=== PATIENT | female | born 1955 | race Caucasian/White ===

== ENCOUNTER → 2018-11-14 07:42 | Outpatient (CLI) | payer OTHER, SELFPAY ==
--- NOTE | 2018-11-14 07:50 | CT_ITS ---
STUDY: CT ABDOMEN AND PELVIS WITH AND WITHOUT CONTRAST REASON FOR EXAM: Female, 63 years old. Microhematuria. RADIATION DOSAGE (If Supplied By Facility): CTDIvol = ( 11.89 ) mGy, DLP = ( 1106.05 ) mGycm TECHNIQUE: Transaxial images were obtained from the dome of the diaphragm to the symphysis pubis without oral contrast. Isovue 300 100CC IV was administered. Sagittal and coronal images were reconstructed. Individualized dose optimization techniques were used for this CT. COMPARISON: None. FINDINGS: The visualized lung bases are unremarkable. The visualized portions of the heart are within normal limits. There is a 1 x 0.7 x 1.1 cm cyst in segment 3 of the liver. There is a 5 cm cyst in segment 6 and a 3 mm cyst in segment 5.. There is also a 8 mm cyst adjacent to the IVC segment 4A. No enhancing liver masses noted. Normal gallbladder and extrahepatic biliary system. Normal spleen. Normal pancreas. Normal bilateral adrenal glands. Both kidneys appear grossly normal. Both demonstrate extrarenal pelvis sees without hydronephrosis. Normal visualized stomach. Normal small intestine. Feces is seen throughout the redundant colon. There is no mass or obstruction. There is non-visualization of the appendix. Normal abdominal aorta. There is prominence of the IVC and iliac veins. Normal retroperitoneum. There is an air-fluid level within an otherwise normal urinary bladder. The uterus is anteverted midline. There is a 9 mm enhancing focus in the left anterior wall suggesting fibroid. Normal ovaries and adnexa. There is no pelvic lymphadenopathy. No mass or free fluid is seen within the abdominal cavity. There are multiple varices extending between the common femoral veins. Normal osseous structures. CT/CT Abd/Pelvis W/WO Contrast IMPRESSION: 1. Air-fluid level in the urinary bladder. This is most likely secondary to recent catheterization. 2. No evidence of renal or ureteral abnormality. 3. Multiple hepatic cysts. 4. Prominent venous structures and IVC without obstruction. There are multiple varices in the soft tissues of the lower abdomen between the common femoral veins. Electronically Signed: Bryson Luu DO at 21:11 EST Tel [phone], Service support ,
[2018-11-14 08:11] LABS: CREATININE FINGERSTICK 0.7 mg/dL (0.55-1.02); EGFR FINGERSTICK > 60.0000 mL/min (>60)
== END ==
PROVIDERS: Family Provider Family Medicine; PCP Family Medicine; Referring Provider Urology; Visit Provider Urology
DX: R31.29 Other microscopic hematuria (principal)
CPT/HCPCS: 74178; Q9967

== ENCOUNTER → 2018-12-04 09:40 | Outpatient (CLI) | payer OTHER, SELFPAY | PROVIDERS: Family Provider Family Medicine; PCP Family Medicine; Referring Provider Urology; Visit Provider Urology | DX: R30.0 Dysuria (principal) | CPT/HCPCS: 87086; 87088 ==

== ENCOUNTER 2018-12-19 11:08 | Observation (INO) | payer SELFPAY ==
--- NOTE | 2018-12-13 10:04 | EKG12_ITS ---
Test Reason : PREOP Blood Pressure : / mmHG Vent. Rate : 074 BPM Atrial Rate : 074 BPM P-R Int : 142 ms QRS Dur : 082 ms QT Int : 374 ms P-R-T Axes : 058 068 052 degrees QTc Int : 415 ms Normal sinus rhythm Possible Left atrial enlargement Borderline ECG Confirmed by JENNY FRANCIS, ROBERT ([id number]), editorial cartoonist ENRIQUE RIVERA ([id number]) on 12/14/2018 1:06:58 PM Referred By: Neela Ayala Confirmed By:ROBERT ALVARADO MD
[2018-12-13 11:03] LABS: Hematocrit 45.8 % (37-47); Hemoglobin 16.1 g/dl (12.0-15.0); Mean Corp Hgb Conc 35.2 g/gl (32-36); Mean Corpuscular Hgb 31.3 pg (27.0-32.0); Mean Corpuscular Volume 89.1 fL (81-99); Mean Platelet Vol. 10.1 fl (6.2-12.0); Platelet Count 364 K/mm3 (150-450); RBC Distribution Width CV 13.4 % (11.6-14.6); RBC Distribution Width SD 43.6 fl (35.1-43.9); Red Blood Count 5.14 M/mm3 (4.2-5.4); Scan Indicated on CBC? Y/N NO; White Blood Count 8.2 K/mm3 (4.4-11.0)
[2018-12-13 11:12] LABS: Prothrombin Time (Protime)PT. 13.3 SECONDS (11.7-14.9)
[2018-12-13 11:13] LABS: Partial Thromboplast Time 32.2 Seconds (24.1-36.2)
[2018-12-15 07:49] VITALS: BMI 20.6
--- NOTE | 2018-12-18 17:04 | PCM.HP.STD ---
Problem List (1) Complete uterine prolapse with prolapse of anterior vaginal wall Status: Acute History of Present Illness Date of Admission: 12/19/18 Chief Complaint: Uterine prolapse The patient is a 63 year old F, . She has had one . Patient is postmenopausal. Patient with increased severity of uterine prolapse. She had attempted pessary. Unable to continue pessary due to lack of comfort. The uterine prolapse has interfered with her housework and gardening. Past Medical History Past Medical History (Chronic Problems): Chronic Problems (Last Updated 12/15/18 @ 07:52 by Rosenda Vaughan) History of acute pyelonephritis (Chronic) Medical History: Medical History (Last Updated 12/15/18 @ 07:52 by Rosenda Vaughan) Mini stroke (Resolved) I63.9 Years ago. No after effects Allergies No Known Allergies Allergy (Verified 12/15/18 07:51) Home Medications: Ambulatory Orders Medication Instructions Recorded L.acidoph,Paracasei, B.lactis 1 ea PO BID 12/12/18 [Probiotic] Lactobacillus Acidophilus 1 ea PO BID 12/12/18 [Probiotic Acidophilus] Surgical History: Surgical History (Last Updated 12/15/18 @ 07:53 by Rosenda Vaughan) History of section Z98.891 1990 Surgical History: no surgical history Smoking Status: Never smoker Review of Systems Constitutional: Denies: Chills, Fever, Weight Change HEENT: Denies: Difficulty Hearing, Difficulty Swallowing, Nasal bleeding, Nasal Congestion, Sore Throat Cardiovascular: Denies: Chest Pain, Palpitations Respiratory: Denies: Shortness of Breath, Wheezing Gastrointestinal: Denies: Constipation, Diarrhea, Nausea, Vomiting Genitourinary: Denies: Dysuria, Frequency, Hematuria, Incontinence, Urgency Musculoskeletal: Denies: Joint Pain, Muscle pain Skin: Denies: Lesions, Skin Changes Neurological: Denies: Focal weakness, Numbness Psychiatric: Denies: Anxiety, Depression Endocrine: Denies: Heat/ Cold Intolerance Hematologic/ Lymphatic: Denies: Easy Bleeding VTE Information - Inpt Only VTE Present on Admission: No VTE Mechan Device Prophylaxis: SCD's VTE Pharm Prophylaxis ordered?: No Subjective: Healthy appearing female. Appropriate weight for height. No distress. - Physical Exam General: Alert, Oriented x3, No apparent distress, Well developed, Well nourished HEENT: PERRLA, EOMI, Normocephalic Oral: Moist Mucosa Neck: Supple, No Nuchal Rigidity, Trachea Midline, Thyroid Normal Size and Texture Lungs: Clear to auscultation, Normal air movement Cardiovascular: Regular rate, Regular Rhythm Abdomen: Bowel Sounds Present, Soft, Non Tender, Non-Distended Extremities: No edema, No Calf Tenderness Skin: No rashes Musculoskeletal: No Tenderness to Palpation of Joints or Extremities, No Muscle Wasting Neurological: Cranial nerves II-XII grossly intact Psych/Mental Status: Normal Affect Assessment/Plan All Active Problems (Last Updated 12/15/18 @ 07:52 by Rosenda Vaughan) Complete uterine prolapse with prolapse of anterior vaginal wall (Acute) Mini stroke (Resolved) 1. Uterine prolapse Vaginal hysterectomy - current ACOG recommendations for BSO. At this point, patient is refusing BSO. Patient accepts the risks of retention. The preop preparation, the intraop procedures and the postop recovery reviewed. The risks of bleeding, infection and other organ damage including bladder, bowel and ureteral injury reviewed, accepted and consented. 2. Prior - review of scar tissue and potential difficulty reducing the bladder from the lower uterine segment from a vaginal aspect. All accepted. 3. Prior TIA medical evaluation with no additional recommendations 4. Anterior and posterior repair per Dr. Ayala
[2018-12-19] VITALS (12 sets, daily range): BP systolic 86–123; BP diastolic 58–74; PULSE 65–93; RESP 14–18; TEMP 36.6–37.1; O2SAT 93–99; BMI 20.7
--- NOTE | 2018-12-19 11:16 | OP.PCM_ITS ---
Problem List (1) Rectocele Status: Acute (2) Stress incontinence Status: Acute (3) Complete uterine prolapse with prolapse of anterior vaginal wall Status: Acute Report of Operation Date of Procedure: 12/19/18 Pre-Operative Diagnosis: complete procidencia with stress incontinence. Post-Operative Diagnosis: same Surgery/Procedure Performed:: anterior repair with mesh, bilateral sacrospinous ligament fixation, posterior repair, midurethral sling, cystoscopy Description of Surgical Findings:: mesh in good position, flat. bilateral ureteral jets at conclusion of case. show horse driver: olga Type of Anesthesia:: General Special Medications: Methylene blue. Specimen's removed: none Estimated Blood Loss (mL): 725cc Description of Procedure: The patient is a 63-year-old woman with complete uterovaginal prolapse who presented to the office for evaluation and treatment. She underwent evaluation with urodynamics and cystoscopy. She now presents for surgical intervention. Informed consent was obtained following thorough discussion of all risks, benefits and alternatives. The patient was taken to the operating room and placed on the operating room table. Anesthesia monitored the head, neck, airway, IV access and vital signs throughout the case. Once anesthesia was superbly administered and the patient was prepped and draped in usual sterile fashion. The procedure was then turned over to Dr. Brewster for vaginal hysterectomy. Following the hysterectomy and closure of the vaginal cuff in transverse fashion, the case was turned to oh. The anterior vaginal wall was injected submucosally with vasopressin. A midline vertical incision was made approximately 2-1/2 cm in length. Both sharp and blunt dissection ensued until the ischial spines were identified bilaterally and the sacral spinous ligaments were palpable and freed from surrounding tissues. The Capio device was then used to pass an Ethibond suture bilaterally which was used to secure the mesh arms to the sacral spinous ligaments. The mesh was attached with interrupted suture in the area of the obturator complexes bilaterally, at the apex and at the bladder neck for positioning. At this time the vaginal mucosa was closed in running interlocking fashion. The posterior vagina was then's submucosally injected in both sharp and blunt dissection ensued. The rectovaginal fascia was then brought together with interrupted 2-0 Vicryl suture and 2 layer closure. The perineum was bolstered as much as possible. The vaginal mucosa was then closed with running interlocking 2-0 Vicryl. At this point the mid urethra was injected submucosally and a midline incision was made. Dissection both sharp and blunt was performed on either side of the urethra until the space was opened in an adequate fashion for placement of the sling. Using the trochars, the alters sling was inserted without difficulty. It was positioned using a right angle clamp and the tensioning suture. It was flat and against the urethra without tension. The tensioning suture was cut in the midline incision was closed using running interlocking 2-0 Vicryl. Throughout the dissection of this case, the patient had significant varicose veins and blood with very minimal dissection. Her vaginal mucosa was very thin as well. A cystourethroscopy was then performed revealing bilateral ureteral jets. There was no entry into the bladder or urethral mucosa with suture, mesh or other foreign body. At this time the Flores catheter was replaced and the bladder was drained. The vagina was packed with Premarin cream and vaginal packing. The patient was awakened and taken to the recovery room in good condition. Grafts/Implants Used: Enio Sanabria - Complications none - Admit VTE Documentation VTE Present on Admission: Yes VTE Mechan Device Prophylaxis: SCD's VTE Pharm Prophylaxis ordered?: No Reason prophylaxis not ordered:: Treatment Not Indicated
--- NOTE | 2018-12-19 11:16 | PCM.DC.URO ---
Discharge Diet: No Restrictions Discharge Activity: May Shower, - - No tub bathing. May resume sexual activity in: - - after evaluated in the office in 6-8 weeks Lifting Restrictions: nothing over 5 pounds for 8 weeks. Additional Activity Instructions:: no strenuous activity, no exercise, no intercourse, No lifting over 5 pounds. No heavy doors, laundry, vacuuming, lifting heavy pots of water, lifting groceries, etc Call your doctor if your incision/area has: Sudden Increased Bleeding, Foul Smelling Discharge Call your doctor if you observe: Fever of 101 or Higher, Inability to urinate, Inability to have a bowel movement, Shortness of breath, Chest pain, Calf discomfort, Uncontrolled pain Additional Instructions: continue estrogen cream inside vagina 3 times a week. Allergies/Adverse Reactions: Allergies No Known Allergies Allergy (Verified 12/15/18 07:51) Medications to take at Discharge L.acidoph,Paracasei, B.lactis [Probiotic] 1 ea PO BID 12/12/18 Lactobacillus Acidophilus [Probiotic Acidophilus] 1 ea PO BID 12/12/18 Primary Care Physician: Sandoval Douglas MD [Primary Care Provider] - Test Results: Test results from this visit will be discussed in further detail at your follow-up appointment, if applicable. Please Follow Up With: Neela Ayala MD When: call office for appt. Proposed Discharge Date: 12/20/18
--- NOTE | 2018-12-19 11:19 | DCINST_ITS ---
Discharge Diet: No Restrictions Discharge Activity: May Shower, - - No tub bathing. May resume sexual activity in: - - after evaluated in the office in 6-8 weeks Lifting Restrictions: nothing over 5 pounds for 8 weeks. Additional Activity Instructions:: no strenuous activity, no exercise, no intercourse, No lifting over 5 pounds. No heavy doors, laundry, vacuuming, lifting heavy pots of water, lifting groceries, etc Call your doctor if your incision/area has: Sudden Increased Bleeding, Foul Smelling Discharge Call your doctor if you observe: Fever of 101 or Higher, Inability to urinate, Inability to have a bowel movement, Shortness of breath, Chest pain, Calf discomfort, Uncontrolled pain Additional Instructions: continue estrogen cream inside vagina 3 times a week. Allergies/Adverse Reactions: Allergies No Known Allergies Allergy (Verified 12/15/18 07:51) Medications to take at Discharge L.acidoph,Paracasei, B.lactis [Probiotic] 1 ea PO BID 12/12/18 Lactobacillus Acidophilus [Probiotic Acidophilus] 1 ea PO BID 12/12/18 Primary Care Physician: Sandoval Douglas MD [Primary Care Provider] - Test Results: Test results from this visit will be discussed in further detail at your follow- up appointment, if applicable. Please Follow Up With: Neela Ayala MD When: call office for appt. Proposed Discharge Date: 12/20/18
--- NOTE | 2018-12-19 11:30 | UT_PTH ---
PATIENT: GOLDY BHAKTA LOC: [facility] U#:[id number] AGE/SX: 63/F ROOM: [facility]212 RE12/19/[address]: Dr. Neela Ayala MD : [id number] BED: 1 DIS: 12/21/2018 SPEC #: [id number] RECD: 12/20/18 09:02 STATUS: AZIZA REKaye #: [id number] JEMMA: 12/19/18 11:[address]: Neela Ayala DEPT: SURGICAL PATHOLOGY RECD BY: Augustus Bauer ENTERED: 12/20/18 13:02 SP TYPE: UTERUS OTHR DR: MD Dr. Sandoval Allen MD Tissues: Uterus, NOS Procedures: Surgery Specimen Level V HEADER OPERATION: Vaginal hysterectomy PRE-OP DIAGNOSIS: Complete uterovaginal prolapse, stress incontinence TISSUE SUBMITTED: Uterus MICROSCOPIC DIAGNOSIS Uterus, vaginal hysterectomy: Cervix - chronic cervicitis with parakeratosis and focal chronic hemorrhage. Endometrium - endometrial polyp with simple cystic glands and focal complex glandular pattern, negative for atypia. Background endometrium showing inactive glandular pattern. Myometrium - multiple leiomyomas with hyalinizing stromal fibrosis. CE:marlene 12/21/18 MICROSCOPIC DESCRIPTION Slides are reviewed. GROSS DESCRIPTION Received in fixative is one container labeled with the patient's name and designated uterus. The specimen consists of a hysterectomy specimen consisting of uterus with cervix weighing 82 gm and measuring 10.5 x 5 x 4 cm. The serosal surface is hill, glistening. A subserosal nodule is noted. The ectocervical mucosa is unremarkable. The external os is slit-like in contour. The endocervical canal measures 4.5 cm in length and the endocervical mucosa is hill, glistening and without any mass lesion. The triangular endometrial cavity measures 5 cm in length and up to 2 cm in width. The endometrial cavity shows a hill-pink polyp measuring 1.5 x 1 x 0.3 cm. Sections of the uterine wall reveal multiple intramural and subserosal nodular masses. The largest mass is subserosal and measures 2 cm in greatest dimension. Sections of these masses reveal hill whorled cut surfaces without areas of hemorrhage, necrosis or cystic degeneration. The myometrial wall underneath the polyp is not indurated. The uninvolved uterine wall measures up to 2 cm in thickness. The section of uterine wall also contains the nodular masses section. Transportation Escort sections are submitted in nine cassettes as follows: 1 - anterior cervix, 2 - posterior cervix, 3 & 4 - anterior uterine wall, 5 & 6 - posterior uterine wall, 7 - endometrial polyp, entirely submitted with underlying uterine wall, 8 - smaller and intermediate sized nodular masses, 9 - largest nodular mass. / TYE:marlene 12/20/18 TC: 1 CPT: 75321
--- NOTE | 2018-12-19 12:43 | PCM.OPRPT ---
Problem List (1) Complete uterine prolapse with prolapse of anterior vaginal wall Status: Acute Report of Operation Date of Procedure: 12/19/18 Pre-Operative Diagnosis: Uterine prolapse Post-Operative Diagnosis: Same Surgery/Procedure Performed:: Vaginal hysterectomy Description of Surgical Findings:: complete prolapse of the bladder and uterus. Uterus sounded to 9cm. Bilateral adnexa benign. road traffic controller: Concepción Padilla Type of Anesthesia:: General Anesthesiologist: Farrukh Jerry Special Medications: Cefotetan 2 g IV preop Specimen's removed: Uterus and cervix Drains: None Estimated Blood Loss (mL): minimal Fluids Replaced: Lactated Ringer Description of Procedure: Patient taken to the operating suite after being in the n.p.o. status since midnight the night before. Patient was placed on the operating room table. Patient underwent a general anesthetic after timeout had occurred verification of all personal identification had occurred. The patient once having adequate anesthesia and monitors appropriately placed was placed in dorsal lithotomy position via the Min stirrups. She was then prepped and draped normal sterile fashion. Flores catheter was placed to the bladder. Weighted speculum was placed to the vaginal vault area. The anterior lip of the cervix was grasped elevated and 40 cc of a diluted vasopressin was placed to the cervix circumferentially and the patient tolerated well. Bovie cauterization was then used to incise and a clockwise incision at the cervical uterine bifurcation. The vaginal mucosa was then removed from the cervix in a circumferential fashion. The posterior cul-de-sac was entered sharply and the swan-neck speculum placed into the vaginal vault. The bilateral cardinal ligaments were grasped and cut and then suture tied with 0 Vicryl suture. Hemostasis was noted. Seizure occurred bilaterally. To the patient's left side the left uterosacral ligament along with the uterine vasculature was grasped and cut and then suture tied with 0 Vicryl suture hemostasis was noted. The exact same procedure occurred on the patient's right side with hemostasis also being assured. The anterior cul-de-sac was then entered sharply and with dissection. The bilateral uterine ovarian ligaments were identified the patient's left utero-ovarian ligament was grasped and cut and then suture tied with 0 Vicryl suture x2 with flushing occurring. The exact same procedures occurred on the patient's right side with the uterine ovarian ligament and hemostasis was noted. The cervix and uterus was then removed and sent away for pathological evaluation. The peritoneal layer was identified and 3-0 Vicryl suture was then used to close the peritoneal layer and a pursestring suture. All ligament sites were noted to be hemostatic along with all vascularity. The vaginal cuff was then closed in a horizontal fashion using 0 Vicryl suture in a running in a low stitch. The incorporation of the uterosacral cardinal complex into the vaginal cuff had occurred as well. All instruments needle and suture suture and sponge counts were correct x2 at this point time Dr. Myke pastor presented and began her part of the surgery Grafts/Implants Used: None - Complications None - Admit VTE Documentation VTE Present on Admission: No VTE Mechan Device Prophylaxis: SCD's VTE Pharm Prophylaxis ordered?: No Reason prophylaxis not ordered:: Procedure Not Indicated - postop Lovenox is planned
[2018-12-19] MEDS: Vasopressin 20 UNITS/ML Vial (13:20)
[2018-12-19] MEDS: Methylene Blue 1% 100 MG/10 ML VIAL (13:45)
[2018-12-19] MEDS: Estrogens,Conj. 1 Tube VAGINAL (14:00)
[2018-12-19] MEDS: Dextrose 5%-Lactated Ringers 1,000 ML 100 ML IV ×2 (14:50→20:20)
[2018-12-19 15:34] LABS: Absolute Lymphocyte Count 1.35 X10^3/ul (0.83-4.51); Absolute Neutrophil Count 24.3 X10^3/uL (2.0-7.7); Basophil# 0.04 X10^3/uL; Basophil% 0.2 % (0-1); Eosinophil# 0.01 X10^3/uL; Hematocrit 37.5 % (37-47); Hemoglobin 12.9 g/dl (12.0-15.0); Lymphocyte # 1.35 X10^3/ul (4.0); Lymphocyte % 5.1 % (19-41); Mean Corp Hgb Conc 34.4 g/gl (32-36); Mean Corpuscular Hgb 30.2 pg (27.0-32.0); Mean Corpuscular Volume 87.8 fL (81-99); Mean Platelet Vol. 9.9 fl (6.2-12.0); Monocyte# 0.52 X10^3/uL; Neutrophil # 24.25 X10^3/uL (2.7-7.7); Neutrophil % 92.3 % (47-70); Platelet Count 391 K/mm3 (150-450); RBC Distribution Width CV 12.9 % (11.6-14.6); RBC Distribution Width SD 40.2 fl (35.1-43.9); Red Blood Count 4.27 M/mm3 (4.2-5.4); White Blood Count 26.3 K/mm3 (4.4-11.0)
[2018-12-19 15:39] LABS: Differential Indicated SCAN CRITERIA MET; POSITIVE COUNT NO; POSITIVE DIFFERENTIAL YES; POSITIVE MORPHOLOGY NO
[2018-12-19 15:59] LABS: Crenated RBC 3+; Differential Comment SCANNED
[2018-12-19] MEDS: Ketorolac 15 MG/ML Vial IV (16:45)
[2018-12-19] MEDS: Ondansetron 4 MG/2 ML Vial IV (17:21)
[2018-12-19] MEDS: Cefazolin 1 GM/50 ML BAG IV (18:38)
[2018-12-19] MEDS: proMETHazine 25 MG/ML Syringe 12.5 MG IV (20:19)
[2018-12-19] MEDS: Morphine 2 MG/ML Syringe IV (20:20)
[2018-12-20] MEDS: HYDROcodone Bitartrate/Apap 5/325 Tablet PO ×4 (00:58→22:34)
[2018-12-20 02:00] VITALS: BP 114/66; PULSE 99; RESP 18; TEMP 36.4; O2SAT 96
[2018-12-20] MEDS: Ondansetron 4 MG/2 ML Vial IV (02:01)
[2018-12-20] MEDS: Ketorolac 15 MG/ML Vial IV (02:01)
[2018-12-20] MEDS: Cefazolin 1 GM/50 ML BAG IV (03:33)
[2018-12-20] MEDS: Dextrose 5%-Lactated Ringers 1,000 ML 100 ML IV (06:12)
[2018-12-20 06:17] LABS: Hematocrit 36.4 % (37-47); Hemoglobin 12.7 g/dl (12.0-15.0); Mean Corp Hgb Conc 34.9 g/gl (32-36); Mean Corpuscular Hgb 30.1 pg (27.0-32.0); Mean Corpuscular Volume 86.3 fL (81-99); Mean Platelet Vol. 9.9 fl (6.2-12.0); Platelet Count 325 K/mm3 (150-450); RBC Distribution Width CV 12.9 % (11.6-14.6); RBC Distribution Width SD 41.1 fl (35.1-43.9); Red Blood Count 4.22 M/mm3 (4.2-5.4); White Blood Count 19.9 K/mm3 (4.4-11.0)
[2018-12-20 06:27] LABS: Anion Gap 8 (5-15); BUN 7 mg/dL (7-18); BUN/Creat Ratio 12.5 RATIO (10-20); Calcium,Total 8.6 mg/dL (8.5-10.1); Chloride 103 mmol/L (98-107); Creatinine, Serum 0.56 mg/dL (0.55-1.02); EST Glomerular Filtration Rate 117 mL/min (>60); Est Glom Filt Rate - Afr Amer 142 mL/min (>60); Estimated Creatinine Clearance 82.38 ml/min; Glucose 168 mg/dL (74-106); Potassium 3.4 mmol/L (3.5-5.1); Sodium Level 136 mmol/L (136-145)
[2018-12-20 06:30] LABS: Scan Indicated on CBC? Y/N NO
[2018-12-20 07:25] VITALS: O2SAT 97
[2018-12-20 07:44] VITALS: BP 116/70; PULSE 95; RESP 18; TEMP 38.2; O2SAT 100
--- NOTE | 2018-12-20 08:23 | PN_ITS ---
Physical Exam Subjective: Lying in bed. Anxious. Just found out [id number] unexpectedly from stroke this morning/last night. Nausea has resolved. Flores is out. Has voided about 100cc, PVR around 500 via bladder scan. Is having some pelvic and low back pain. Otherwise, is moving and ambulating. Will be ready to go home today. - Physical Exam Vital Signs Temp 100.7 F H 12/20/18 07:44 Pulse 95 12/20/18 07:44 Resp 18 12/20/18 07:44 BP 116/70 12/20/18 07:44 Pulse Ox 100 12/20/18 07:44 Intake & Output 12/18/18 12/19/18 12/20/18 23:59 23:59 23:59 Intake Total 3379 / 3379 655 / 655 Output Total 1340 / 1340 475 / 475 Balance 2038 180 / 180 Weight: 51.6 kg Intake: Oral 300 / 300 IV fluid/meds 3079 / 3079 655 / 655 IV #3 2400 / 2400 Output: Urine 1340 / 1340 475 / 475 General: Alert, Oriented x3, Cooperative HEENT: Atraumatic, Normocephalic Oral: Moist Mucosa Neck: Trachea Midline Lungs: Normal air movement Cardiovascular: Regular rate Abdomen: Soft Rectal: Exam deferred Skin: No rashes Musculoskeletal: No Muscle Wasting Neurological: Cranial nerves II-XII grossly intact Psych/Mental Status: Normal Affect Laboratory Tests Past 24 Hrs 12/19/18 12/20/18 12/20/18 15:00 05:45 05:45 WBC 26.3 H 19.9 H RBC 4.27 4.22 Hgb 12.9 12.7 Hct 37.5 36.4 L MCV 87.8 86.3 MCH 30.2 30.1 MCHC 34.4 34.9 RDW 12.9 12.9 RDW Differential 40.2 41.1 Plt Count 391 325 MPV 9.9 9.9 Immature Gran % (Auto) 0.400 Neut % (Auto) 92.3 H Lymph % (Auto) 5.[address] [place] % (Auto) 2.0 Eos % (Auto) 0.0 Baso % (Auto) 0.2 Absolute Neuts (auto) 24.3 H Absolute Lymphs (auto) 1.35 Total Counted Not Reportable Differential Comment SCANNED RBC Morphology 3+ Sodium 136 Potassium 3.4 L Chloride 103 Carbon Dioxide 25.0 Anion Gap 8 BUN 7 Creatinine 0.56 Estim Creat Clear Calc 82.38 Est GFR (MDRD) Af Amer 142 Est GFR (MDRD) Non-Af 117 BUN/Creatinine Ratio 12.5 Glucose 168 H Calcium 8.6 Medical Necessity - Tobacco Use Smoking Status: Never smoker Assessment/Plan All Active Problems (Last Updated 12/15/18 @ 07:52 by Rosenda Vaughan) Complete uterine prolapse with prolapse of anterior vaginal wall (Acute) Rectocele (Acute) Stress incontinence (Acute) Mini stroke (Resolved) Await second void and repeat PVR. If still elevated, home today with catheter. Rx for narcotics, keflex and zofran on chart.
--- NOTE | 2018-12-20 08:25 | NURSING ---
PT VOIDED 100ML. BLADDER SCAN = 496ML. DR KATHLEEN NOTIFIED OF SAME ORDERED. ORDER TO CONT VOIDING TRIAL & BLADDER SCAN AGAIN WITH NEXT VOID. PT AWARE.
[2018-12-20 09:10] VITALS: BP 111/69; PULSE 91; RESP 18; TEMP 36.7; O2SAT 97
[2018-12-20] MEDS: Enoxaparin 40 MG/0.4 ML Syringe SC (11:05)
--- NOTE | 2018-12-20 11:26 | NURSING ---
PT VOIDED 300 ML. BLADDER SCAN = 694ML. DR KATHLEEN NOTIFIED & NEW ORDER RECEIVED TO PLACE NGUYEN, GIVE PT LEG BAG ALSO & DO CATHETER CARE WITH PT. TEACH PT TO REMOVE NGUYEN Tuesday & SEE DR KATHLEEN TUESDAY.
[2018-12-20 12:56] VITALS: BP 99/60; PULSE 100; RESP 18; TEMP 37.3; O2SAT 98
--- NOTE | 2018-12-20 13:16 | PCM.PN.OB ---
Patient Problems: Active and Suspected Problems (Last Updated 12/15/18 @ 07:52 by Rosenda Vaughan) Rectocele (Acute) Stress incontinence (Acute) Subjective: Feels well with adequate pain control. Little ambulation. - Physical Exam General: No apparent distress, Well developed, Well nourished HEENT: PERRLA, EOMI, Normocephalic Oral: Moist Mucosa Neck: Supple, No Nuchal Rigidity Lungs: Clear to auscultation - bilaterally, Normal air movement Cardiovascular: Regular rate, No murmurs, No rub noted Abdomen: Bowel Sounds Present, Soft, Non Tender, Non-Distended, - - No guarding, hepatomegaly, splenomegaly, rebound tenderness Extremities: No cyanosis, No edema, No Calf Tenderness Skin: No rashes, Other - No ulcers, lesions Musculoskeletal: No Muscle Wasting Neurological: Cranial nerves II-XII grossly intact Psych/Mental Status: Alert and oriented to time, place, person, mood and affect Vital Signs Temp Pulse Resp BP Pulse Ox 99.1 F 100 18 99/60 98 12/20/18 12:56 12/20/18 12:56 12/20/18 12:56 12/20/18 12:56 12/20/18 12:56 Oxygen Delivery Method Room Air Weight: 113 lb 12.136 oz Body Mass Index (BMI) 20.7 Intake and Output for Last 24 Hours 12/18/18 12/19/18 12/20/18 23:59 23:59 23:59 Intake Total 3379 / 3379 1724 / 1724 Output Total 1340 / 1340 1925 / 1925 Balance 2038 / 2038 -201 / -201 Laboratory Tests Past 24 Hrs 12/19/18 12/20/18 12/20/18 15:00 05:45 05:45 WBC 26.3 H 19.9 H RBC 4.27 4.22 Hgb 12.9 12.7 Hct 37.5 36.4 L MCV 87.8 86.3 MCH 30.2 30.1 MCHC 34.4 34.9 RDW 12.9 12.9 RDW Differential 40.2 41.1 Plt Count 391 325 MPV 9.9 9.9 Immature Gran % (Auto) 0.400 Neut % (Auto) 92.3 H Lymph % (Auto) 5.1 L Nobles % (Auto) 2.0 Eos % (Auto) 0.0 Baso % (Auto) 0.2 Absolute Neuts (auto) 24.3 H Absolute Lymphs (auto) 1.35 Total Counted Not Reportable Differential Comment SCANNED RBC Morphology 3+ Sodium 136 Potassium 3.4 L Chloride 103 Carbon Dioxide 25.0 Anion Gap 8 BUN 7 Creatinine 0.56 Estim Creat Clear Calc 82.38 Est GFR (MDRD) Af Amer 142 Est GFR (MDRD) Non-Af 117 BUN/Creatinine Ratio 12.5 Glucose 168 H Calcium 8.6 Capacity - Capacity Assessment Tool Can the patient make a choice & communicate that choice?: Yes Can the patient understand benefits, risks and alternatives?: Yes Can the patient make a logical, rational choice?: Yes Is the choice the patient makes consistent w/ their values?: Yes Is there an impending, emergent risk to the patient?: No Medical Necessity - Tobacco Use Smoking Status: Never smoker Assessment/Plan All Active Problems (Last Updated 12/15/18 @ 07:52 by Rosenda Vaughan) Complete uterine prolapse with prolapse of anterior vaginal wall (Acute) Rectocele (Acute) Stress incontinence (Acute) Mini stroke (Resolved) 1. POD #1 - vaginal hysterectomy ambulation tolerating oral intake needs flatus prior to discharge - will consult with Dr. Ayala if glycerin suppository allowed colace in the home setting
[2018-12-20] MEDS: Glycerin 1 Suppository 1 SUPP RECTAL (13:48)
--- NOTE | 2018-12-20 15:18 | PCA ---
pt out walking in [place] with family
--- NOTE | 2018-12-20 17:57 | NURSING ---
PT CONCERNED ABOUT NOT PASSING GAS YET. PT HAS AMBULATED IN [place] MULTIPLE TIMES. ASKED IF I CAN CHECK WITH MD TO SEE IF THERE IS ANYTHING ELSE SHE CAN TAKE. 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 ORDER FOR MAGNESIUM CITRATE.
[2018-12-20] MEDS: Magnesium Citrate 300 ML PO (18:25)
[2018-12-20 20:38] VITALS: BP 111/73; PULSE 82; RESP 16; TEMP 36.6; O2SAT 94
[2018-12-21 02:41] VITALS: BP 110/74; PULSE 79; RESP 16; TEMP 37.3; O2SAT 97
[2018-12-21] MEDS: HYDROcodone Bitartrate/Apap 5/325 Tablet PO (05:55)
[2018-12-21 07:30] VITALS: BP 111/69; PULSE 91; RESP 18; TEMP 36.7; O2SAT 97
--- NOTE | 2018-12-21 07:47 | PCM.DC.VHY ---
Discharge Diet: - - no beef, pork or fresh vegetables x 2 weeks. Advise clear liquid diet until gas passage. Discharge Activity: May Shower, - - No tub bathing. May shower in (days): 0 - TODAY May resume sexual activity in: - - after evaluated in the office in 6-8 weeks Weight Bearing Status: Full weight bearing Lifting Restrictions: 5 pounds Additional Activity Instructions:: no strenuous activity, no exercise, no intercourse, No lifting over 5 pounds. No heavy doors, laundry, vacuuming, lifting heavy pots of water, lifting groceries, etc Call your doctor if your incision/area has: Sudden Increased Bleeding, Foul Smelling Discharge Call your doctor if you observe: Fever of 101 or Higher, Inability to urinate, Inability to have a bowel movement, Shortness of breath, Chest pain, Calf discomfort, Uncontrolled pain Cleanse incision/area with: Soap & Water Additional Instructions: continue estrogen cream inside vagina 3 times a week. Allergies/Adverse Reactions: Allergies No Known Allergies Allergy (Verified 12/15/18 07:51) Medications to take at Discharge L.acidoph,Paracasei, B.lactis [Probiotic] 1 ea PO BID 12/12/18 Lactobacillus Acidophilus [Probiotic Acidophilus] 1 ea PO BID 12/12/18 Cephalexin [Keflex] 500 mg PO Q12 3 Days #6 cap 12/20/18 Docusate Sodium [Colace] 100 mg PO BID #30 capsule 12/20/18 Hydrocodone Bitart/Apap 5-325 [Benedict 5/325] 1 - 2 tab PO Q6H PRN PRN 7 Days #30 tab 12/20/18 Ondansetron [Zofran] 8 mg PO Q8H PRN PRN 7 Days #20 tab 12/20/18 The following prescriptions were given: Hydrocodone Bitart/Apap 5-325 [Benedict 5/325] 1 - 2 tab PO Q6H PRN PRN 7 Days #30 tab PRN Reason: Mild-moderate(pain scale 1-5) Ondansetron [Zofran] 8 mg PO Q8H PRN PRN 7 Days #20 tab PRN Reason: Nausea Cephalexin [Keflex] 500 mg PO Q12 3 Days #6 cap Docusate Sodium [Colace] 100 mg PO BID #30 capsule Primary Care Physician: Sandoval Douglas MD [Primary Care Provider] - Test Results: Test results from this visit will be discussed in further detail at your follow-up appointment, if applicable. Please Follow Up With: Neela yAala MD When: call office for appt. Please Follow Up With: Kim Brewster MD When: 1-2 weeks postop. Call for appointment if not already arranged. Proposed Discharge Date: 12/20/18
[2018-12-21 08:25] LABS: Free T3 2.1 pg/mL (2.18-3.98); Thyroid Stim Hormone (TSH) 1.04 uIU/mL (0.358-3.74)
[2018-12-21 08:57] LABS: Hemoglobin A1c 5.7 % (4.2-6.3)
--- NOTE | 2018-12-21 12:00 | PCM.PN.OB ---
Subjective: States + flatus this am. NO nausea. - Physical Exam General: Alert, Oriented x3 HEENT: Atraumatic, PERRLA Oral: Moist Mucosa Neck: Supple Lungs: Clear to auscultation Cardiovascular: Regular rate, Regular Rhythm Abdomen: Bowel Sounds Present, Soft, Non Tender Extremities: No edema Skin: No rashes Musculoskeletal: No Muscle Wasting Neurological: Cranial nerves II-XII grossly intact Vital Signs Temp Pulse Resp BP Pulse Ox 98.1 F 91 18 111/69 97 12/21/18 07:30 12/21/18 07:30 12/21/18 07:30 12/21/18 07:30 12/21/18 07:30 Oxygen Delivery Method Room Air Weight: 113 lb 12.136 oz Body Mass Index (BMI) 20.7 Intake and Output for Last 24 Hours 12/19/18 12/20/18 12/21/18 23:59 23:59 23:59 Intake Total 3379 / 3379 2354 / 2354 Output Total 1340 / 1340 2550 / 2550 1075 / 1075 Balance 2038 / 2038 -196 / -196 -1075 / -1075 Laboratory Tests Past 24 Hrs 12/21/18 12/21/18 05:45 05:45 Hemoglobin A1c 5.7 TSH 1.04 Free T3 pg/dL 2.1 L Medical Necessity - Tobacco Use Smoking Status: Never smoker Assessment/Plan All Active Problems (Last Updated 12/15/18 @ 07:52 by Rosenda Vaughan) Complete uterine prolapse with prolapse of anterior vaginal wall (Acute) Rectocele (Acute) Stress incontinence (Acute) Mini stroke (Resolved) 1. POD #2 - vaginal hysterectomy ambulation tolerating oral intake flatus this am colace in the home setting
== END 2018-12-21 09:11 | disposition home or self-care (01) ==
LOC: MS2 13:15 → SDC 13:16
PROVIDERS: Obstetrics & Gynecology; Admitting Provider Urology; Family Provider Internal Medicine; PCP Internal Medicine; Referring Provider Urology; Visit Provider Urology
PROC: (CPT 58260; principal; 2018-12-19 11:10)
PROC: (CPT 57260; 2018-12-19 11:10)
DX: N81.3 Complete uterovaginal prolapse (principal); N39.3 Stress incontinence (female) (male); Z86.73 Personal history of transient ischemic attack (TIA), and cerebral infarction without residual deficits; N84.0 Polyp of corpus uteri; D25.9 Leiomyoma of uterus, unspecified; N72 Inflammatory disease of cervix uteri
CPT/HCPCS: 57240; 57288; 58260; 36415; 80048; 83036; 84443; 84481; 85025; 85027; 85610; 85730; 86850; 86900; 88307; 93005; 96361; 96365; 96366; 96372; 96375; 96376; 99218; J7120; G0378; G0379; J2405

== ENCOUNTER → 2019-02-05 10:30 | Outpatient (CLI) | payer OTHER, SELFPAY ==
[2019-01-24 15:21] VITALS: BMI 20.7
[2019-02-05 13:18] LABS: Anion Gap 9 (5-15); BUN 11 mg/dL (7-18); BUN/Creat Ratio 22.6 RATIO (10-20); Calcium,Total 9.5 mg/dL (8.5-10.1); Chloride 106 mmol/L (98-107); Creatinine, Serum 0.49 mg/dL (0.55-1.02); EST Glomerular Filtration Rate 137 mL/min (>60); Est Glom Filt Rate - Afr Amer 166 mL/min (>60); Glucose 96 mg/dL (74-106); Potassium 3.8 mmol/L (3.5-5.1); Sodium Level 141 mmol/L (136-145)
[2019-02-05 14:18] LABS: Absolute Neutrophil Count 6.3 X10^3/uL (2.0-7.7); Basophil# 0.05 X10^3/uL; Basophil% 0.6 % (0-1); Eosinophil# 0.09 X10^3/uL; Eosinophils% 1.1 % (0-5); Hemoglobin 16.1 g/dl (12.0-15.0); Lymphocyte % 15.7 % (19-41); Mean Corp Hgb Conc 34.3 g/gl (32-36); Mean Corpuscular Hgb 29.9 pg (27.0-32.0); Mean Corpuscular Volume 87.2 fL (81-99); Mean Platelet Vol. 9.9 fl (6.2-12.0); Monocyte# 0.51 X10^3/uL; Monocyte% 6.1 % (0-10); Neutrophil # 6.34 X10^3/uL (2.7-7.7); Neutrophil % 76.4 % (47-70); Platelet Count 410 K/mm3 (150-450); RBC Distribution Width CV 13.3 % (11.6-14.6); RBC Distribution Width SD 42.3 fl (35.1-43.9); Red Blood Count 5.39 M/mm3 (4.2-5.4); White Blood Count 8.3 K/mm3 (4.4-11.0)
[2019-02-05 14:27] LABS: POSITIVE COUNT NO; POSITIVE DIFFERENTIAL NO; POSITIVE MORPHOLOGY NO
== END ==
PROVIDERS: Family Provider Internal Medicine; PCP Internal Medicine; Referring Provider Internal Medicine; Visit Provider Internal Medicine
DX: D72.829 Elevated white blood cell count, unspecified (principal); E87.6 Hypokalemia; R73.9 Hyperglycemia, unspecified
CPT/HCPCS: 36415; 80048; 85025

== ENCOUNTER 2023-10-02 21:56 | Emergency (ER) | payer OTHER, SELFPAY ==
[2023-10-02 21:58] VITALS: BP 138/88; PULSE 90; RESP 18; TEMP 36.4; O2SAT 97; BMI 21.2
[2023-10-02 22:04] VITALS: BP 138/88; PULSE 89; RESP 18; TEMP 36.4; O2SAT 96
--- NOTE | 2023-10-02 22:15 | CT_ITS ---
EXAM: CT ABDOMEN AND PELVIS WITH INTRAVENOUS CONTRAST CLINICAL INDICATION: diffuse pain, and L flank pain TECHNIQUE: Helically acquired images were obtained of the abdomen and pelvis with intravenous contrast. This CT exam was performed using one or more of the following dose reduction techniques: automated exposure control, adjustment of the mA and/or kV according to patient size, and/or use of iterative reconstruction technique. CONTRAST: 75 cc of Isovue-370 IV. RADIATION DOSE: CTDIvol = 10.02 mGy, DLP = 421.42 mGy-cm COMPARISON: 11/14/2018. FINDINGS: LOWER THORAX: Unremarkable. Lung bases are clear. No cardiomegaly. No significant pericardial effusion. ABDOMEN: LIVER: Small hepatic cysts. GALLBLADDER AND BILE DUCTS: Unremarkable. No calcified gallstones. No gallbladder distention or wall edema. No intra- or extrahepatic biliary ductal dilation. PANCREAS: Unremarkable. No focal cystic or solid mass. SPLEEN: Unremarkable. Normal size without focal cystic or solid mass. ADRENALS: Unremarkable. No nodules. KIDNEYS AND URETERS: Unremarkable. Normal renal size and position. No hydronephrosis. STOMACH AND BOWEL: Unremarkable. No stomach or bowel distention. No focal inflammatory change. PELVIS: APPENDIX: No evidence of acute appendicitis. BLADDER: Unremarkable. REPRODUCTIVE: Hysterectomy. ABDOMEN and PELVIS: INTRAPERITONEAL SPACE: Unremarkable. No ascites or other fluid collection. No free air. BONES/JOINTS: Unremarkable. No suspicious lytic or blastic abnormality. SOFT TISSUES: Unremarkable. No discrete abdominal or pelvic wall hernia. VASCULATURE: Unremarkable. Abdominal aorta is non-dilated. LYMPH NODES: Unremarkable. No enlarged lymph nodes. CT/Abdomen/Pelvis W IV Cont ONLY IMPRESSION: 1. Small hepatic cysts. No follow-up necessary. 2. Hysterectomy. 3. No acute abdominal pelvic abnormality. Electronically Signed: Ruddy Galeana MD at 23:47 EST ,
--- NOTE | 2023-10-02 22:16 | EKG12_ITS ---
Test Reason : ABDOMINAL Blood Pressure : / mmHG Vent. Rate : 083 BPM Atrial Rate : 083 BPM P-R Int : 144 ms QRS Dur : 080 ms QT Int : 364 ms P-R-T Axes : 067 041 042 degrees QTc Int : 427 ms Normal sinus rhythm Biatrial enlargement Abnormal ECG Confirmed by JENNY FRANCIS, ROBERT ([id number]), desk editor ENRIQUE RIVERA ([id number]) on 10/03/2023 9:38:10 AM Referred By: Confirmed By:ROBERT ALVARADO MD
--- NOTE | 2023-10-02 22:21 | EDS_ITS ---
HPI HPI - GI History of Present Illness Chief Complaint: Flank Pain Informant: patient Narrative Narrative: Patient states 4 days or so ago she started having lower abdominal pain, she went to the doctor and had a urinalysis that appeared infected and she was started on ciprofloxacin which she has been taking for the last 2-3 days. She states she has had urine infections before and she typically gets dysuria, but she has not had any urinary symptoms this time. For the first day or so of antibiotic she was feeling better but now for the past day or so she has been feeling worse, she states her abdominal pain is diffuse but worse lower, and she is having pain into her left flank, feeling achy all over, feeling like maybe she had a fever earlier, and feeling short of breath but without any discomfort in her chest. Has had minor [employer] cough. She denies any symptoms radiating into her legs, or bowel or bladder dysfunction. She still has no urinary symptoms. Patient states her pain is a lot less now that EMS gave her IV analgesic. [facility] Medical History TIA (transient ischemic attack) Home Medications Compression Stockings #1 ea 01/24/19 [Rx Last Taken Unknown] ciprofloxacin HCl 500 mg tablet (Cipro) 500 mg PO Q12H 10/02/23 [History Last Taken Unknown] albuterol sulfate 90 mcg/actuation aerosol inhaler (Ventolin HFA) 1 - 2 puff inhalation Q4H PRN PRN Wheezing ##1 10/03/23 [Rx Last Taken Unknown] amoxicillin 875 mg-potassium clavulanate 125 mg tablet 875 mg (0.875 x 875-125 mg) PO Q12H #20 TABLETS 10/03/23 [Rx Last Taken Unknown] hydrocodone-acetaminophen 5-325mg 5mg-325mg 1 tab PO Q4H PRN PRN Pain 2 days #10 TABLETS 10/03/23 [Rx Last Taken Unknown] Allergy/AdvReac Type Severity Reaction Status Date / Time sulfamethoxazole Allergy Severe Swelling Verified 10/03/23 00:07 [From Sulfamethoxazole-Trimethoprim] Family History Mother Thyroid cancer Surgical History History of section History of hysterectomy Social History Smoking Status: Never smoker alcohol intake: never substance use type: does not use what type of physical activity do you participate in: other details: Light exercise program ROS ROS ED Constitutional Constitutional ED: Reports body ache(s), fever(s) and subjective; Denies chills Eyes Eyes: Denies change in vision or diplopia ENT ENT ED: Denies rhinorrhea or sore throat Cardiovascular Cardiovascular: Denies chest pain or palpitations Respiratory/Chest Respiratory/Chest: Reports cough and dyspnea Gastrointestinal Gastrointestinal: Reports abdominal pain and nausea; Denies diarrhea or vomiting Genitourinary Genitourinary ED: Reports flank pain; Denies dysuria or hematuria Musculoskeletal Musculoskeletal: Reports back pain and myalgias; Denies neck pain Integumentary Denies abscess or rash Neurologic Neurologic: Denies headache(s), paresthesias or weakness Psychiatric Psychiatric: Denies anxiety or suicidal thoughts EXAM Physical Exam Const Vital Signs: 10/02/23 21:58 10/02/23 22:04 10/02/23 23:03 Temperature 97.5 F L 97.5 F L 97.8 F Temperature Source Temporal Temporal Temporal Pulse Rate 90 89 78 Respiratory Rate 18 18 16 Blood Pressure 138/88 H 138/88 H 148/78 H Blood Pressure Mean 104 104 101 Pulse Ox 97 96 95 Oxygen Delivery Method Room Air Room Air Room Air Positive well nourished and well developed General Appearance ED: well developed and NAD HEENT Reports moist mucous membranes normocephalic and atraumatic Eyes PERRL and EOMs intact bilaterally Neck full ROM, no lymphadenopathy, supple and no JVD Resp clear to auscultation bilaterally Resp Narrative: Slightly tachypneic but in no respiratory distress Cardio regular rate, regular rhythm and no murmurs Rate: Negative for tachycardic GI non-distended GI Narrative: Diffuse abdominal tenderness without guarding or rebound. Auscultation: normoactive bowel sounds Palpation: soft Back/Spine Back/Spine Narrative: Minor tenderness left flank. Normal inspection no rash. General Back: other FROM Extremity normal to inspection General Extremety ED: Negative for edema, pulses abnormal or tenderness General Extremity: Negative for edema or pulses abnormal Neuro oriented x3, CN's II-XII intact bilaterally, no sensory deficits noted and gait normal Sensorium / Orientation: awake and alert Motor Exam: strength 5/5 throughout Psych mental status grossly normal and thought process normal Skin no rashes or lesions noted and no wounds MDM MDM MDM Narrative Medical decision making narrative: Differential here does include pyelonephritis as well as ureterolithiasis, also GI etiologies or biliary etiologies. For these reasons it was felt a CT was indicated. She is dyspneic and my concern with a with clear lungs and a normal EKG that she would be acidotic and possibly septic so we did obtain a VBG as well as a lactic acid. VBG is reassuring showing a mild acute respiratory alkalosis, suggesting that she may simply be anxious due to pain. 2 view chest x-ray my interpretation shows a right upper lobe infiltrate. Therefore while we were waiting for the results of the CT in context of a leukocytosis, she was given a dose of Zosyn 4.5 g. Her liver enzymes and lipase within normal limits. She does have a slightly elevated calcium level but the rest of her electrolytes are within normal limits. Urine does show signs of infection and pyuria but without bacteria, it is possible this is because she has already partially treated a urine infection, but I did send a culture since I do not have 1 available to look at since it was sent by PCP as an outpatient, outside of our system. I did review the CT abdomen/pelvis images as well as the report which I agree with, it is negative for anything acute. She still having some lower abdominal pain and asking for more pain medication which we gave her. I had nursing ambulate her, she does so well without hypoxemia. She does not want to be admitted to the hospital when we offered. She is comfortable going home, I will add Augmentin to her Cipro for additional appropriate antimicrobial coverage, it is possible that her left flank pain is pyelonephritis but if so it is mild and not showing any hydronephrosis or perinephric stranding on the CT, and for now the Cipro should cover that adequately. With ambulation she was mildly dyspneic, it goes away when she rests, she is comfortable going home we will prescribe her an albuterol inhaler as well as something for pain. She is comfortable with this plan of following up. Lab Data Attestation: I reviewed the patient's lab results. Labs: Laboratory Results - last 24 hr 10/02/23 10/02/23 21:32 22:35 WBC 16.1 H RBC 5.33 Hgb 16.1 H Hct 47.0 MCV 88.2 MCH 30.2 MCHC 34.3 RDW Std Deviation 41.5 RDW Coeff of Anderson 12.7 Plt Count 514 H MPV 9.4 Immature Gran % (Auto) 1.400 H Neut % (Auto) 80.9 H Lymph % (Auto) 9.7 L Harrison % (Auto) 7.2 Eos % (Auto) 0.2 Baso % (Auto) 0.6 Absolute Neuts (auto) 13.0 H Absolute Lymphs (auto) 1.57 Nucleated RBC % 0 Sodium 139 Potassium 3.9 Chloride 102 Carbon Dioxide 25.0 Anion Gap 12 BUN 10 Creatinine 0.44 L Estim Creat Clear Calc 53.97 Est GFR (MDRD) Af Amer 183 Est GFR (MDRD) Non-Af 151 BUN/Creatinine Ratio 22.7 H Glucose 111 H Lactic Acid 1.0 Calcium 10.5 H Total Bilirubin 0.50 AST 11 L ALT 28 Alkaline Phosphatase 73 Troponin I High Sens 5 Total Protein 7.4 Albumin 3.5 Globulin 3.9 Albumin/Globulin Ratio 0.9 Lipase 58 Urine Color Yellow Urine Clarity Clear Urine pH 8.0 Ur Specific [place] 1.010 Urine Protein Negative Urine Glucose (UA) Normal Urine Ketones 15 H Urine Occult Blood 25 H Urine Nitrite Negative Urine Bilirubin Negative Urine Urobilinogen Normal Ur Leukocyte Esterase 500 H Urine RBC 0-5 SEEN Urine WBC 10-25 SEEN Ur Squamous Epith Cells 0 SEEN Urine Bacteria 0 SEEN Urine Mucus 0 SEEN ABG Data ABG results: ABG 10/02/23 22:54 Specimen Type JUSTINO Sample Site Not entered VBG pH 7.59 H VBG pO2 52 H VBG HCO3 24 VBG Total CO2 25 VBG O2 Sat (Calc) 92 H VBG Base Excess 2 POC Mix VBG pCO2 Pt Tmp 25.0 L O2 Delivery Device Not entered Radiography Diagnostic Testing: Clinical Impression(s) from Imaging Studies Abdomen/Pelvis CT 10/02/23 22:15 IMPRESSION: 1. Small hepatic cysts. No follow-up necessary. 2. Hysterectomy. 3. No acute abdominal pelvic abnormality. Electronically Signed: Ruddy Galeana MD at 23:47 EST , Chest X-Ray 10/02/23 23:10 IMPRESSION: 1. Small areas of consolidation right anterior and posterior segments of the right upper lobe consistent with pneumonia. 2. Hyperinflation consistent with COPD. 3. Mild blunting of the costophrenic angles bilaterally may be due to slight pleural effusions. Electronically Signed: Ruddy Galeana MD at 23:53 EST , Rhythm Strip Rhythm Strip: Sinus Rhythm Rate: 85 Ectopy: None EKG Initial EKG: Attestation: I personally reviewed and interpreted this EKG as follows: Interpretation: Sinus Rhythm and No Acute Injury Pattern Discharge Plan Triage Chief Complaint: Flank Pain ED Provider: Dipak Pineda Dx/Rx/DC Orders Clinical Impression: Acute left flank pain, Abdominal pain, lower, Pneumonia Instructions: ED Pneumonia (Adult) Prescriptions: New albuterol sulfate [Ventolin HFA] 90 mcg/actuation HFA aerosol inhaler 1 - 2 puff inhalation Q4H PRN PRN (Reason: Wheezing) Qty: 1 0RF amoxicillin-pot clavulanate [amoxicillin-pot clavulanate] 875-125 mg tablet 875 mg PO Q12H Qty: 20 0RF hydrocodone-acetaminophen [hydrocodone-acetaminophen] 5-325 mg tablet 1 tab PO Q4H PRN PRN (Reason: Pain) 2 Days Qty: 10 0RF No Action (DME) Compression Stockings 20 - 30 mmHg Qty: 1 0RF Dose Instruction: As directed Rx Instructions: Wear daily. Take off at bed time. ciprofloxacin HCl [Cipro] 500 mg tablet 500 mg PO Q12H Primary Care Provider: Sandoval Douglas Referrals: Sandoval Douglas MD [Primary Care Provider] - 2 Days (For reevaluation and to review urine culture results) Disposition Disposition: Home, Self Care
[2023-10-02] MEDS: 0.9% Normal Saline (1000mL) 1,000 ML 1000 ML IV (22:32)
[2023-10-02 22:35] LABS: Absolute Lymphocyte Count 1.57 X10^3/uL (0.83-4.51); Basophil% 0.6 % (0-1); Eosinophil# 0.04 X10^3/uL; Eosinophils% 0.2 % (0-5); Hemoglobin 16.1 g/dL (12.0-15.0); Lymphocyte # 1.57 X10^3/ul (0.83-4.51); Lymphocyte % 9.7 % (19-41); Mean Corp Hgb Conc 34.3 g/dL (32-36); Mean Corpuscular Hgb 30.2 pg (27.0-32.0); Mean Corpuscular Volume 88.2 fL (81-99); Mean Platelet Vol. 9.4 fl (6.2-12.0); Monocyte# 1.16 X10^3/uL; Monocyte% 7.2 % (0-10); NRBC Flagged by Analyzer 0 % (0-5); Neutrophil # 13.02 X10^3/uL (2.7-7.7); Neutrophil % 80.9 % (47-70); Platelet Count 514 K/mm3 (150-450); RBC Distribution Width CV 12.7 % (11.6-14.6); RBC Distribution Width SD 41.5 fl (35.1-43.9); Red Blood Count 5.33 M/mm3 (4.2-5.4); White Blood Count 16.1 K/mm3 (4.4-11.0)
[2023-10-02 22:41] LABS: Bacteria 0 SEEN /hpf (None Seen); Mucous, Urine 0 SEEN /hpf (<or=2+); Squamous Epithelial Cells - UA 0 SEEN /hpf (5-10)
[2023-10-02 22:42] LABS: Color, Urine Yellow (Yellow); Glucose, Dipstick Normal (Normal); Ketone-Dipstick 15 mg/dl (Negative); Leukocyte Esterase-Dipstick 500 /ul (Negative); Nitrite-Dipstick Negative (Negative); Occult Blood-Urine 25 /ul (Negative); Protein-Dipstick Negative (Negative); Urine Bilirubin Dipstick Negative (Negative); Urine Clarity Clear (Clear); Urine Urobilinogen Normal (Normal)
[2023-10-02 22:52] LABS: Red Blood Cells-Urine 0-5 SEEN /hpf (0-5); White Blood Cells 10-25 SEEN /hpf (0-5)
[2023-10-02 22:55] LABS: ALB/GLOB Ratio 0.9 RATIO (0.9-2.4); AST(SGOT) 11 U/L (15-37); Alanine Aminotransfer ALT/SGPT 28 U/L (13-56); Albumin, Serum 3.5 g/dL (3.2-5.0); Alkaline Phosphatase 73 U/L (45-117); Anion Gap 12 (5-15); BUN 10 mg/dL (7-18); BUN/Creat Ratio 22.7 RATIO (10-20); Calcium,Total 10.5 mg/dL (8.5-10.1); Chloride 102 mmol/L (98-107); Creatinine, Serum 0.44 mg/dL (0.55-1.02); EST Glomerular Filtration Rate 151 mL/min (>60); Est Glom Filt Rate - Afr Amer 183 mL/min (>60); Estimated Creatinine Clearance 53.97 ml/min; Globulin 3.9 g/dL (2.2-4.2); Glucose 111 mg/dL (74-106); Lipase 58 U/L (13-75); Potassium 3.9 mmol/L (3.5-5.1); Protein, Total 7.4 g/dL (6.4-8.2); Sodium Level 139 mmol/L (136-145); Troponin-I HS 5 pg/mL (3.0-54.0)
[2023-10-02 22:58] LABS: Blood Gas Specimen Type VEN; O2 Delivery Device Not entered; SITE Not entered; VBG BASE EXCESS 2 mmol/L (-1.0-3.5); VBG Bicarbonate 24 mmol/L (22-26); VBG PO2 52 mmHg (25-40); VBG SO2 92 % (50-70); VBG TCO2 25 mmol/L (23-33); VBG pH 7.59 (7.32-7.42)
[2023-10-02 23:03] VITALS: BP 148/78; PULSE 78; RESP 16; TEMP 36.6; O2SAT 95
--- NOTE | 2023-10-02 23:10 | RAD_ITS ---
EXAM: XR CHEST, 2 VIEWS CLINICAL INDICATION: sob TECHNIQUE: Frontal and lateral views of the chest. COMPARISON: No relevant prior studies available. FINDINGS: LUNGS AND PLEURAL SPACES: Small areas of consolidation right anterior and posterior segments of the right upper lobe consistent with pneumonia. Hyperinflation consistent with COPD. Mild blunting of the costophrenic angles bilaterally may be due to slight pleural effusions. No pneumothorax. HEART: Unremarkable. Cardiac silhouette not enlarged. MEDIASTINUM: Central airways and mediastinal contour are unremarkable. BONES/JOINTS: Unremarkable. No acute fracture. SOFT TISSUES: Unremarkable. RAD/Chest PA and Lateral IMPRESSION: 1. Small areas of consolidation right anterior and posterior segments of the right upper lobe consistent with pneumonia. 2. Hyperinflation consistent with COPD. 3. Mild blunting of the costophrenic angles bilaterally may be due to slight pleural effusions. Electronically Signed: Ruddy Galeana MD at 23:53 EST ,
[2023-10-02 23:31] VITALS: O2SAT 95
[2023-10-02] MEDS: Piperacil/Tazobactam 4.5 GM in 0.9% Normal Saline (100mL MB+) 100 ML IV (23:42)
--- NOTE | 2023-10-02 23:51 | ED.RN ---
PT DECLINES TO CHANGE INTO HOSPITAL [facility]
[2023-10-03] VITALS: BP 121/72; PULSE 87; RESP 15; O2SAT 95
[2023-10-03] MEDS: Morphine 4 MG/ML Syringe IV (00:07)
[2023-10-03 00:42] VITALS: BP 121/72; PULSE 87; RESP 15; O2SAT 94
== END 2023-10-03 01:02 | disposition home or self-care (01) ==
PROVIDERS: Emergency Provider Emergency Medicine; PCP Internal Medicine; Visit Provider Emergency Medicine
DX: R10.30 Lower abdominal pain, unspecified (principal); J18.9 Pneumonia, unspecified organism; Z86.73 Personal history of transient ischemic attack (TIA), and cerebral infarction without residual deficits
CPT/HCPCS: 71046; 74177; 80053; 81001; 82803; 83605; 83690; 84484; 85025; 87086; 93005; 96361; 96365; 96375; 99283; Q9967; A4216; J2405

== ENCOUNTER → 2024-04-09 | Outpatient (CLI) | payer OTHER, SELFPAY ==
[2024-04-09 09:56] LABS: EST Glomerular Filtration Rate 167 mL/min (>60); Est Glom Filt Rate - Afr Amer 203 mL/min (>60)
== END | disposition home or self-care (01) ==
PROVIDERS: PCP Family Medicine; Referring Provider Physician Assistant Surgical; Visit Provider Physician Assistant Surgical
DX: N28.89 Other specified disorders of kidney and ureter (principal)
CPT/HCPCS: 36415; 82565

== ENCOUNTER → 2024-12-31 | Outpatient (CLI) | payer OTHER, SELFPAY ==
--- NOTE | 2024-12-31 09:34 | US_ITS ---
PROCEDURE: POST VOID RESIDUAL BLADDER 12/31/2024 REASON FOR EXAM: FEELING OF INCOMPLETE BLADDER EMPTYING TECHNIQUE: Complete abdominal ultrasound coley-scale images with color doppler. PATIENT PREPARATION: Per protocol COMPARISON: None. FINDINGS: Prevoid bladder volume 527.8 cc. Postvoid residue 307.7 cc. Diffuse thickening of the wall of the bladder measuring 3.2 mm. Normal bladder wall thickness measuring 3 mm. A [place] thick walled structure is identified in the inferior aspect of the bladder measuring 1.9 x 1.3 x 1.3 cm, possibly presenting ureterocele. Moderate debris are noted in the bladder. Moderate debris are noted in the bladder. US/Post Void Residual Bladder IMPRESSION: 1. Moderate debris are noted in the lumen of the bladder. 2. Significant postvoid residue. 3. A [place] thick walled structure is identified in the inferior aspect of the bladder measuring 1.9 x 1.3 x 1.3 cm, possibly presenting ureterocele. Reading Location: [place] [id number]
== END | disposition home or self-care (01) ==
LOC: US 09:30
PROVIDERS: PCP Family Medicine; Referring Provider Family Medicine; Visit Provider Family Medicine
DX: R39.14 Feeling of incomplete bladder emptying (principal)
CPT/HCPCS: 51798